=== PATIENT | female | born 1945 | race Caucasian/White ===

== ENCOUNTER → 2016-09-22 | Outpatient (CLI) | payer MEDICARE, OTHER | LOC: OPSV 08:29 → MRI 11:00 | DX: C44.722 Squamous cell carcinoma of skin of right lower limb, including hip (principal); E86.0 Dehydration; R60.0 Localized edema; Z98.890 Other specified postprocedural states | CPT/HCPCS: 73723; 96360; 96361; A9577; J7030; J7050 ==